=== PATIENT | male | born 1940 | race Caucasian/White ===

== ENCOUNTER → 2018-04-26 | Outpatient (CLI) | payer MEDICARE, BC ==
[~2018-04-26] MED LIST: ASPI1TAB57 PO; COMMODE 3-IN-11 MIS; CYCL10TA PO; HYDR-3366 PO; MIRA3350 PO; POTA-163 PO; PYRI100T PO; TEMA15CA PO; TRAM50TA PO; TRIBTAB PO; VITA500S3 SL; WALKER WHEELS/F1 MIS
[2018-04-26 12:54] LABS: AUTOMATED NEUTROPHIL # 5.2 TH/MM3 (1.8-7.7); BASOPHIL % 0.7 % (0.0-2.0); EOSINOPHIL # 0.2 TH/MM3 (0-0.4); EOSINOPHIL % 2.6 % (0.0-4.0); HEMOGLOBIN 12.8 GM/DL (13.0-17.0); LYMPH % 14.9 % (9.0-44.0); MEAN CELL VOLUME 90.5 FL (80.0-100.0); MEAN CORPUSCULAR HEMOGLOBIN 31.3 PG (27.0-34.0); MEAN CORPUSCULAR HGB CONC 34.6 % (32.0-36.0); MEAN PLATELET VOLUME 7.5 FL (7.0-11.0); MONOCYTE # 0.6 TH/MM3 (0-0.9); NEUT % 73.8 % (16.0-70.0); PLATELET COUNT 297 TH/MM3 (150-450); RED BLOOD COUNT 4.09 MIL/MM3 (4.50-5.90); RED CELL DISTRIBUTION WIDTH 14.9 % (11.6-17.2)
--- NOTE | 2018-04-26 12:56 | RADRPT ---
EXAM DATE: 04/26/2018 12:52 PM EDT AGE/SEX: 77 years / Male INDICATIONS: Pre-Op for Lumbar surgery on 05/01/2018. CLINICAL DATA: This is the patient's initial encounter. Patient reports that signs and symptoms have been present for 1 day and indicates a pain score of 3/10. MEDICAL/SURGICAL HISTORY: None. None. COMPARISON: No prior exams available for comparison. FINDINGS: PA and lateral views of the chest demonstrate the lungs to be symmetrically aerated without evidence of mass, infiltrate or effusion. The cardiomediastinal contours are unremarkable. Osseous structures are intact. Spurs are seen in the thoracic spine. CONCLUSION: No acute cardiopulmonary process. Electronically signed by: Micheal Buckley MD 04/26/2018 12:55 PM EDT
[2018-04-26 13:04] LABS: PROTHROMBIN TIME - PATIENT 10.3 SEC (9.8-11.6)
[2018-04-26 13:15] LABS: BACTERIA, URINE MOD /hpf; BILIRUBIN, URINE NEG (NEG); BLOOD, URINE MOD (NEG); GLUCOSE,URINE NEG (NEG); KETONE, URINE NEG (NEG); MUCUS URINE FEW /lpf (OCC); NITRITE,URINE NEG (NEG); SQUAMOUS EPITHELIAL CELL URINE 1 /hpf (0-5); URINE COLOR YELLOW (YELLW/STRAW); URINE LEUKOCYTE ESTERASE LARGE (NEG)
[2018-04-26 13:19] LABS: ALBUMIN 3.5 GM/DL (3.4-5.0); BICARBONATE 30.4 MEQ/L (21.0-32.0); BLOOD UREA NITROGEN 33 MG/DL (7-18); CHLORIDE 100 MEQ/L (98-107); CREATININE 1.36 MG/DL (0.60-1.30); GLOMERULAR FILTRATION RATE 51 ML/MIN (>89); GLUCOSE,FASTING 99 MG/DL (74-99); SODIUM (NA) 141 MEQ/L (136-145)
[2018-04-26 13:21] LABS: AST (GOT) 19 U/L (15-37)
[2018-04-26 13:24] LABS: ALKALINE PHOSPHATASE 108 U/L (45-117); ALT (GPT) 27 U/L (12-78); TOTAL BILIRUBIN ADULT 0.4 MG/DL (0.2-1.0); TOTAL PROTEIN 7.4 GM/DL (6.4-8.2)
--- NOTE | 2018-04-27 15:16 | EKG ---
Date Performed: 04/26/2018 Time Performed: 12:06:38 PTAGE: 77 years EKG: Sinus rhythm NORMAL ECG NO PREVIOUS TRACING DOCTOR: Sarah Feng Interpretating Date/Time 04/27/2018 15:15:40
== END ==
LOC: CPRE 11:25
PROVIDERS: ATTEND Neurological Surgery
DX: Z01.810 Encounter for preprocedural cardiovascular examination (principal); Z01.811 Encounter for preprocedural respiratory examination; Z01.812 Encounter for preprocedural laboratory examination; Z01.818 Encounter for other preprocedural examination; Z79.01 Long term (current) use of anticoagulants; M48.062 Spinal stenosis, lumbar region with neurogenic claudication; M51.36 Other intervertebral disc degeneration, lumbar region; M48.8X6 Other specified spondylopathies, lumbar region; M43.10 Spondylolisthesis, site unspecified; R82.99 Other abnormal findings in urine
CPT/HCPCS: 71046; 80053; 81001; 85025; 85610; 85730; 87086; 87640; 87641; 93005

== ENCOUNTER 2018-05-01 06:05 | Inpatient (IN) | payer MEDICARE, BC ==
[~2018-05-01] VITALS: Ht 177.8 cm; Wt 102.2 kg
[~2018-05-01 06:05] MED LIST changes: -COMMODE 3-IN-11 MIS; -CYCL10TA PO; -HYDR-3366 PO; -MIRA3350 PO; -TRAM50TA PO; -WALKER WHEELS/F1 MIS
[2018-05-01] MEDS ORDERED: POVIDONE IODINE 5% (ANTISEPSIS KIT) 4 APPLICATIONS EACH NARE PRN (06:45)
[2018-05-01] MEDS ORDERED: SODIUM CHLOR 0.9% 1000 ML INJ 1,000 ML IV SCH (06:45)
[2018-05-01] MEDS ORDERED: METOPROLOL TARTRATE 25 MG TAB PO PRN (06:45)
[2018-05-01] MEDS ORDERED: LACTATED RINGER'S 1000 ML IV PRN (06:45)
[2018-05-01] MEDS ORDERED: VANCOMYCIN 1 GM/200 ML PREMIX ON-CALL IV SCH (06:45)
[2018-05-01] MEDS ORDERED: CHLORHEXIDINE GLUCONATE 2 % 1 PACK (2 CLOTHS) TOPICAL PRN (06:45)
[2018-05-01] MEDS ORDERED: SODIUM CHLORID 0.9% 500 ML IV PRN (06:45)
[2018-05-01] MEDS ORDERED: ceFAZolin 2 GM/DEX PREMIX 50 ML IV SCH (07:00)
[2018-05-01] MEDS ORDERED: BUPIVACAINE/EPINEPHRINE 0.5% PF 30 ML VIAL ONE (07:06)
[2018-05-01] MEDS ORDERED: THROMBIN (TOPICAL) 5,000 UNIT VIAL ONE (07:09)
[2018-05-01] MEDS ORDERED: GELATIN 12 MM/7 MM FOAM ONE (07:09)
[2018-05-01] MEDS ORDERED: VANCOMYCIN HCL 1000 MG VIAL ONE ×2 (07:09→11:52)
[2018-05-01] MEDS ORDERED: GELFOAM SIZE 100 ONE (07:09)
[2018-05-01] MEDS ORDERED: ACETAMINOPHEN 1000 MG/100 ML 100 ML IV ONE (07:23)
[2018-05-01] MEDS ORDERED: MIRA3350 PO (07:47)
[2018-05-01] MEDS ORDERED: TRAM50TA PO (07:47)
[2018-05-01] MEDS ORDERED: LEVOFLOXACIN 750 MG/DEXTROSE 150 ML IV ONE (10:15)
[2018-05-01] MEDS ORDERED: GLYCOPYRROLATE 1 MG/5 ML SYRINGE IV PUSH ONE (12:00)
[2018-05-01] MEDS ORDERED: PROPOFOL 200 MG/20 ML AMP IV ONE (12:00)
[2018-05-01] MEDS ORDERED: NEOSTIGMINE 5 MG/5 ML SYRINGE IV PUSH ONE (12:00)
[2018-05-01] MEDS ORDERED: PHENYLEPH/NS 1000 MCG/10 ML SYR IV ONE (12:00)
[2018-05-01] MEDS ORDERED: DEXAMETHASONE SOD PHOS 4 MG/ML VIAL IV ONE (12:00)
[2018-05-01] MEDS ORDERED: LIDOCAINE HCL 1% PF 5 ML SYRINGE OTHER ONE (12:00)
[2018-05-01] MEDS ORDERED: ROCURONIUM INJ 50 MG/5 ML SYRINGE IV PUSH ONE (12:00)
[2018-05-01] MEDS ORDERED: ONDANSETRON HCL 4 MG/2 ML VIAL IV ONE (12:00)
[2018-05-01] MEDS ORDERED: ePHEDrine/NS 25 MG/5 ML SYRINGE IV ONE (12:00)
[2018-05-01] MEDS ORDERED: DO NOT ADM ANY ANTICOAGULANT DRUGS PRN (13:00)
[2018-05-01] MEDS ORDERED: MORPHINE SULFATE 4 MG/ML INJ ONE (13:14)
[2018-05-01] MEDS ORDERED: *morphine SULFATE 4 MG/ML PERIprocedure ONLY ONE ×3 (13:18→13:56)
--- NOTE | 2018-05-01 13:27 | PD.OP ---
Bhupinder Esqueda, Operative Report Date of Surgery: May 01, 2018 Preoperative Diagnosis: Intractable low back pain with neurogenic claudication; L4-5 facet and ligamentum flavum hypertrophy with severe spinal stenosis and associated degenerative disc disease with grade 1 spondylolisthesis Postoperative Diagnosis: Same Procedure: Lumbar L4-5 transforaminal interbody fusion; L4-5 decompressive laminectomy; L4- 5 pedicle screw fixation; L4-5 interbody cage placement; microsurgical technique Anesthesia: General endotracheal by Mariel leary Surgeon: Brett Love MD Professor Of Biochemistry(s): Leann Wang Operation and Findings: Following initiation of general endotracheal anesthesia, the patient had a Tinajero catheter placed along with sequential compression devices. A gram of vancomycin was administered intravenously and he was turned in a prone position on a Dwaine frame, on a Volodymyr table, and all pressure points adequately padded. The lumbosacral region was then prepped with Chloraprep and sterilely draped with Ioban along the usual sterile draping. A midline skin incision was then made extending from the L4-L5 level after infiltrating the skin with 0.5% Marcaine with epinephrine solution extending down through the fascia. The muscle fibers were split using avascular fatty plane and detached from the underlying facets, transverse process and lateral portion of lamina on the left side and a self-retaining retractor used for exposure. Intraoperative fluoroscopy was also used for level of confirmation along with microscope magnification for further dissection. There was significant facet and ligamentum flavum hypertrophy noted at the L4-5 levels. Left L4-5 facet was resected with a drill bit along with the lamina and there was severe foraminal and lateral recess stenosis from hypertrophied ligamentum flavum and facet which were decompressed bilaterally through the unilateral approach with gentle thecal sac retraction for circumferential spinal canal decompression. There was significant disc height collapse along with disc protrusion also leading to the foraminal stenosis. Epidural hemostasis was achieved with bipolar cautery and Gelfoam with thrombin. Subsequently entered into the disc space at the L4-5 level with a #15 blade and mireya were used for discectomy. I then placed PEEK cage packed with local autograft bone and more local autograft bone was packed adjacent to the cage in interspace for added interbody fusion. With placement of the cage, I was able to distract the interspace and opened up the foramen further bilaterally. Subsequently in order to facilitate the fusion and provide stabilization, pedicle screw fixation was undertaken using Gibbon spine screws on entry point at the left L4-5 levels at the junction of the transverse process and facet. Subsequently using AP and lateral fluoroscopy tap and screw placement. The screws were then connected with a jose and locked in place with caps. The construct appeared very secure at this point. The area was then copiously irrigated with Vancomycin solution and powder. The retractors were removed and the bipolar cautery used for hemostasis. The muscle fascia was then approximated using 2-0 Vicryl interrupted stitches and then 3-0 Vicryl subcuticular stitches also placed in interrupted fashion. The final skin closure was completed with Mastisol and Steri-Strips. A sterile dressing was then applied. The patient then turned in supine position, extubated and taken to recovery room. There were no intraoperative complications. All sponge and needle counts were correct at the end of procedure. Estimated blood loss about 50 ml. Brett Love MD May 01, 2018 13:26
[2018-05-01] MEDS ORDERED: BISACODYL 10 MG SUPP RECTAL PRN (13:30)
[2018-05-01] MEDS ORDERED: MENTHOL LOZENGE BUCCAL PRN (13:30)
[2018-05-01] MEDS ORDERED: PROMETHAZINE INJ 25 MG/ML VIAL IM PRN (13:30)
[2018-05-01] MEDS ORDERED: ALUMINUM/MAGNESIUM/SIMETH 30 ML CUP PO PRN (13:30)
[2018-05-01] MEDS ORDERED: RESP: ALBUTEROL 2.5 MG/3 ML NEB (PRN) NEB (13:30)
[2018-05-01] MEDS ORDERED: MORPHINE SULFATE 4 MG/ML INJ IV PUSH PRN (13:30)
[2018-05-01] MEDS ORDERED: ONDANSETRON HCL 4 MG/2 ML VIAL IV PUSH PRN (13:30)
[2018-05-01] MEDS ORDERED: LACTULOSE SYRUP 20 GM/30 ML CUP PO PRN (13:30)
[2018-05-01] MEDS ORDERED: MAGNESIUM SULFATE INJ 2 GM in SODIUM CHLORIDE 0.9% INJ 100 ML IV PRN (13:30)
[2018-05-01] MEDS ORDERED: SODIUM CHLORIDE 0.9% FLUSH 10 ML FLUSH IV FLUSH PRN (13:30)
[2018-05-01] MEDS ORDERED: POTASSIUM CHLOR 20 MEQ PREMIX 100 ML IV PRN (13:30)
[2018-05-01] MEDS ORDERED: cloNIDine HCL 0.1 MG TAB PO PRN (13:30)
[2018-05-01] MEDS ORDERED: TEMAZEPAM 15 MG CAP PO PRN (13:30)
[2018-05-01] MEDS ORDERED: CALCIUM GLUCONATE INJ 1 GM in SODIUM CHLORIDE 0.9% INJ 100 ML IV PRN (13:30)
[2018-05-01] MEDS ORDERED: ACETAMINOPHEN 325 MG TAB PO PRN (13:30)
[2018-05-01] MEDS ORDERED: ACETAMINOPHEN/HYDROcodone 325 MG/10 MG TAB PO PRN (13:30)
[2018-05-01 13:38] LABS: AMORPHOUS SEDIMENT, URINE OCC; BACTERIA, URINE OCC /hpf; BILIRUBIN, URINE NEG (NEG); BLOOD, URINE SMALL (NEG); GLUCOSE,URINE NEG (NEG); KETONE, URINE NEG (NEG); MUCUS URINE FEW /lpf (OCC); NITRITE,URINE NEG (NEG); URINE COLOR YELLOW (YELLW/STRAW); URINE LEUKOCYTE ESTERASE LARGE (NEG); WHITE BLOOD CELL CLUMPS RARE
[2018-05-01 13:47] LABS: AUTOMATED NEUTROPHIL # 7.1 TH/MM3 (1.8-7.7); BASOPHIL % 0.5 % (0.0-2.0); EOSINOPHIL % 0.4 % (0.0-4.0); HEMOGLOBIN 11.6 GM/DL (13.0-17.0); LYMPH % 6.9 % (9.0-44.0); LYMPHOCYTE # 0.5 TH/MM3 (1.0-4.8); MEAN CELL VOLUME 90.2 FL (80.0-100.0); MEAN CORPUSCULAR HEMOGLOBIN 30.8 PG (27.0-34.0); MEAN CORPUSCULAR HGB CONC 34.2 % (32.0-36.0); MEAN PLATELET VOLUME 6.8 FL (7.0-11.0); MONO % 2.6 % (0.0-8.0); MONOCYTE # 0.2 TH/MM3 (0-0.9); NEUT % 89.6 % (16.0-70.0); PLATELET COUNT 276 TH/MM3 (150-450); RED BLOOD COUNT 3.77 MIL/MM3 (4.50-5.90); RED CELL DISTRIBUTION WIDTH 14.7 % (11.6-17.2); WHITE BLOOD COUNT 7.9 TH/MM3 (4.0-11.0)
[2018-05-01 14:01] LABS: CALCIUM 8.2 MG/DL (8.5-10.1); CREATININE 1.46 MG/DL (0.60-1.30); MAGNESIUM 2.1 MG/DL (1.5-2.5)
[2018-05-01] MEDS: NS + KCL 20 MEQ INJ 1,000 ML IV SCH (14:20)
[2018-05-01] MEDS ORDERED: HYDROmorphone HCL PF 2 MG/ML VIAL ONE (14:31)
[2018-05-01] MEDS ORDERED: POTASSIUM CHLORIDE 10 MEQ CONTROLLED RELEASE TAB PO ONE (15:00)
[2018-05-01] MEDS: CYCLOBENZAPRINE HCL 10 MG TAB PO SCH ×2 (15:00→23:18)
[2018-05-01] MEDS ORDERED: ONDANSETRON ODT 4 MG TAB PO PRN (15:15)
[2018-05-01] MEDS ORDERED: PILL SPLITTER OTHER PRN (15:15)
[2018-05-01] MEDS ORDERED: METOCLOPRAMIDE HCL 10 MG/2 ML VIAL IV PUSH PRN (16:45)
[2018-05-01 20:00] VITALS: BP 140/67; PULSE 70; RESP 18; TEMP 97.4; O2SAT 100
[2018-05-01] MEDS: ACETAMINOPHEN/HYDROcodone 325 MG/10 MG TAB PO PRN (23:13)
[2018-05-01] MEDS: POTASSIUM CHLORIDE 20 MEQ CONTROLLED RELEASE TAB PO SCH (23:15)
[2018-05-01] MEDS: SODIUM CHLORIDE 0.9% FLUSH 10 ML FLUSH IV FLUSH SCH (23:17)
[2018-05-01] MEDS: DOCUSATE SODIUM 50 MG/SENNA 8.6 MG TAB PO SCH (23:17)
[2018-05-02] VITALS: BP 157/83; PULSE 78; RESP 18; TEMP 98; O2SAT 99
[2018-05-02 04:00] VITALS: BP 156/72; PULSE 70; RESP 18; TEMP 97.8; O2SAT 98
[2018-05-02] MEDS: CYCLOBENZAPRINE HCL 10 MG TAB PO SCH ×3 (05:33→22:13)
[2018-05-02] MEDS: NS + KCL 20 MEQ INJ 1,000 ML IV SCH ×2 (05:33→16:35)
[2018-05-02 05:52] LABS: BICARBONATE 27.5 MEQ/L (21.0-32.0); CALCIUM 8.3 MG/DL (8.5-10.1); CREATININE 1.04 MG/DL (0.60-1.30)
[2018-05-02 08:08] VITALS: BP 165/79; PULSE 71; RESP 17; TEMP 98.2; O2SAT 97
[2018-05-02] MEDS: PANTOPRAZOLE SOD 40 MG DELAYED RELEASE TAB PO SCH (08:27)
[2018-05-02] MEDS: DOCUSATE SODIUM 50 MG/SENNA 8.6 MG TAB PO SCH ×2 (08:27→21:22)
[2018-05-02] MEDS: LOSARTAN 50 MG TAB PO SCH (08:27)
[2018-05-02] MEDS: POTASSIUM CHLORIDE 20 MEQ CONTROLLED RELEASE TAB PO SCH ×2 (08:28→21:23)
[2018-05-02] MEDS: LEVOFLOXACIN 500 MG TAB PO SCH (08:28)
[2018-05-02] MEDS: HYDROCHLOROTHIAZIDE 12.5 MG CAP PO SCH (08:28)
[2018-05-02] MEDS: PYRIDOXINE HCL 50 MG TAB PO SCH (08:29)
[2018-05-02] MEDS: CYANOCOBALAMIN 1,000 MCG TAB PO SCH (08:29)
[2018-05-02] MEDS: SODIUM CHLORIDE 0.9% FLUSH 10 ML FLUSH IV FLUSH SCH ×2 (08:30→21:23)
[2018-05-02] MEDS: POLYETHYLENE GLYCOL 17 GM PKG PO SCH (08:30)
[2018-05-02] MEDS ORDERED: NON-FORMULARY DRUG (Olmesartan-Amlodipine-Hydrochlorothiazide (Tribenzor) 1 TAB) PO SCH (09:00)
--- NOTE | 2018-05-02 10:11 | HHI.NSPN ---
(Dimitrios Stacy) History Chief Complaint: Incisional pain controlled with medication. (Dimitrios Stacy) Interval History 05/02/18: Pt awake and alert. Complains of incisional pain controlled with pain medication. He denies any radiculopathy in LEs. He has mild paresthesias on the bottom of the right foot. He is pleased so far with results. (Dimitrios Stacy) Review of Systems General: Negative for: fever, chills, insomnia Respiratory: Negative for: shortness of breath, cough, sputum Cardiovascular: Negative for: chest pain Gastrointestinal: Negative for: nausea, vomitting, diarrhea, constipation ( Dimitrios Stacy) Exam Results Vital Signs Date Time Temp Pulse Resp B/P (MAP) Pulse Ox O2 Delivery O2 Flow Rate FiO2 05/02/18 08:08 98.2 71 17 165/79 (107) 97 05/01/18 14:45 Nasal Cannula 2 Intake and Output 05/02/18 05/02/18 05/03/18 08:00 16:00 00:00 Intake Total 480 ml Output Total 1800 ml Balance -1320 ml (Dimitrios Satcy) Physical Examination General: Pt awake and alert resting comfortably in bed. Eyes: Pupils equal and sclera anicteric. Resp: CTA bilaterally Heart: NSR no murmurs Abd: Soft positive bs Skin: Pt log rolled incision clean and dry, without signs of infection. Muscle: Moves LEs with good strength. Neuro: Pt awake and alert. Follows commands well. Speech clear and appropriate. Sensation intact in LEs. (Dimitrios Stacy) Lab, Micro, Other Results Laboratory Tests Test 05/01/18 13:36 05/02/18 04:59 White Blood Count 7.9 TH/MM3 Red Blood Count 3.77 MIL/MM3 Hemoglobin 11.6 GM/DL Hematocrit 34.0 % Mean Corpuscular Volume 90.2 FL Mean Corpuscular Hemoglobin 30.8 PG Mean Corpuscular Hemoglobin Concent 34.2 % Red Cell Distribution Width 14.7 % Platelet Count 276 TH/MM3 Mean Platelet Volume 6.8 FL Neutrophils (%) (Auto) 89.6 % Lymphocytes (%) (Auto) 6.9 % Monocytes (%) (Auto) 2.6 % Eosinophils (%) (Auto) 0.4 % Basophils (%) (Auto) 0.5 % Neutrophils # (Auto) 7.1 TH/MM3 Lymphocytes # (Auto) 0.5 TH/MM3 Monocytes # (Auto) 0.2 TH/MM3 Eosinophils # (Auto) 0.0 TH/MM3 Basophils # (Auto) 0.0 TH/MM3 CBC Comment DIFF FINAL Differential Comment Blood Urea Nitrogen 24 MG/DL 18 MG/DL Creatinine 1.46 MG/DL 1.04 MG/DL Random Glucose 130 MG/DL 107 MG/DL Calcium Level 8.2 MG/DL 8.3 MG/DL Magnesium Level 2.1 MG/DL Sodium Level 140 MEQ/L 140 MEQ/L Potassium Level 3.2 MEQ/L 4.0 MEQ/L Chloride Level 103 MEQ/L 105 MEQ/L Carbon Dioxide Level 26.0 MEQ/L 27.5 MEQ/L Anion Gap 11 MEQ/L 8 MEQ/L Estimat Glomerular Filtration Rate 47 ML/MIN 70 ML/MIN (Dimitrios Stacy) Medical Decision Making Impression and Plan A: 77 y/o M s/p L4/L5 TLIF with cage and pedicle screw fixation. P: Continue with pain control PT oob with brace on. D/C Tinajero. (Dimitrios Stacy) Attending Statement The exam, history, and the medical decision-making described in the above note were completed with the assistance of the mid-level provider. I reviewed and agree with the findings presented. I attest that I had a [id number] encounter with the patient on the same day, and personally performed and documented my assessment and findings in the medical record. (Brett oLve MD) Dimitrios Stacy May 02, 2018 10:11 Brett Love MD May 03, 2018 08:35
[2018-05-02] MEDS ORDERED: WALKER WHEELS/F1 MIS (10:22)
[2018-05-02] MEDS: ACETAMINOPHEN/HYDROcodone 325 MG/10 MG TAB PO PRN ×2 (11:30→18:49)
[2018-05-02 11:55] VITALS: BP 149/72; PULSE 93; RESP 18; TEMP 98.4; O2SAT 94
[2018-05-02] MEDS ORDERED: COMMODE 3-IN-11 MIS (12:18)
[2018-05-02] MEDS: MAGNESIUM HYDROXIDE SUSP 30 ML CUP PO PRN (16:33)
[2018-05-02 16:37] VITALS: BP 155/65; PULSE 78; RESP 18; TEMP 98.8; O2SAT 96
[2018-05-02] MEDS: SENNOSIDES 8.6 MG TAB PO PRN (16:39)
[2018-05-02] MEDS ORDERED: PADIMATE (CHAPSTICK) 4.5 GM TUBE TOPICAL PRN (19:30)
[2018-05-02 20:00] VITALS: BP 144/72; PULSE 105; RESP 18; TEMP 98.5; O2SAT 95
[2018-05-03] VITALS: BP 135/64; PULSE 90; RESP 16; TEMP 98.7; O2SAT 94
--- NOTE | 2018-05-03 00:12 | RADRPT ---
EXAM DATE: 05/01/2018 1:40 PM EDT AGE/SEX: 77 years / Male INDICATIONS: L4-5 fusion CLINICAL DATA: This is the patient's initial encounter. Patient reports that signs and symptoms have been present for 1 day and indicates a pain score of Nonresponsive. MEDICAL/SURGICAL HISTORY: Non-responsive. Non-responsive. COMPARISON: No prior exams available for comparison. FINDINGS: 3 intraoperative spot images of the lumbar spine. Posterior fusion hardware on the left at L4-5. CONCLUSION: Intraoperative spot images showing posterior hardware on the left at L4-5. Electronically signed by: Maco Erwin MD 05/03/2018 12:11 AM EDT
[2018-05-03 04:00] VITALS: BP 155/74; PULSE 91; RESP 18; TEMP 98.6; O2SAT 94
[2018-05-03] MEDS: CYCLOBENZAPRINE HCL 10 MG TAB PO SCH ×3 (06:01→23:30)
--- NOTE | 2018-05-03 08:23 | HHI.NSPN ---
(Dimitrios Stacy) History Chief Complaint: Incisional pain controlled with medication. (Dimitrios Stacy) Interval History 05/02/18: Pt awake and alert. Complains of incisional pain controlled with pain medication. He denies any radiculopathy in LEs. He has mild paresthesias on the bottom of the right foot. He is pleased so far with results. 05/03/18: Pt awake and alert. Complains of more incisional pain today and left hip pain. States he tried to get oob but had difficulty secondary to pain. He denies any radiculopathy into the LEs. His paresthesias has resolved on the bottom of the right foot. (Dimitrios Stacy) Review of Systems General: Negative for: fever, chills, insomnia Respiratory: Negative for: shortness of breath, cough, sputum Cardiovascular: Negative for: chest pain Gastrointestinal: Negative for: nausea, vomitting, diarrhea, constipation ( Dimitrios Stacy) Exam Results Vital Signs Date Time Temp Pulse Resp B/P (MAP) Pulse Ox O2 Delivery O2 Flow Rate FiO2 05/03/18 04:00 98.6 91 18 155/74 (101) 94 05/01/18 14:45 Nasal Cannula 2 Intake and Output 05/03/18 05/03/18 05/04/18 08:00 16:00 00:00 Intake Total 480 ml Balance 480 ml (Dimitrios Stacy) Physical Examination General: Pt awake and alert resting comfortably in bed. Eyes: Pupils equal and sclera anicteric. Resp: CTA bilaterally Heart: NSR no murmurs Abd: Soft positive bs Skin: SCDs in place. No cyanosis or erythema. Muscle: Moves LEs with good strength. Neuro: Pt awake and alert. Follows commands well. Speech clear and appropriate. Sensation intact in LEs. (Dimitrios Stacy) Lab, Micro, Other Results Last Impressions Lumbar Spine X-Ray 05/01/18 0000 Signed Impressions: CONCLUSION: Intraoperative spot images showing posterior hardware on the left at L4-5. (Dimitrios Stacy) Medical Decision Making Impression and Plan A: 77 y/o M s/p L4/L5 TLIF with cage and pedicle screw fixation. P: Continue with pain control PT oob with brace on. (Dimitrios Stacy) Attending Statement The exam, history, and the medical decision-making described in the above note were completed with the assistance of the mid-level provider. I reviewed and agree with the findings presented. I attest that I had a [id number] encounter with the patient on the same day, and personally performed and documented my assessment and findings in the medical record. (Brett Love MD) Dimitrios Stacy May 03, 2018 08:23 Brett Love MD May 03, 2018 17:15
[2018-05-03 08:31] VITALS: BP 165/80; PULSE 103; RESP 19; TEMP 98.7; O2SAT 93
[2018-05-03] MEDS: CYANOCOBALAMIN 1,000 MCG TAB PO SCH (09:00)
[2018-05-03] MEDS: SODIUM CHLORIDE 0.9% FLUSH 10 ML FLUSH IV FLUSH SCH ×2 (09:00→20:52)
[2018-05-03] MEDS: LOSARTAN 50 MG TAB PO SCH (09:49)
[2018-05-03] MEDS: HYDROCHLOROTHIAZIDE 12.5 MG CAP PO SCH (09:49)
[2018-05-03] MEDS: PANTOPRAZOLE SOD 40 MG DELAYED RELEASE TAB PO SCH (09:49)
[2018-05-03] MEDS: POTASSIUM CHLORIDE 20 MEQ CONTROLLED RELEASE TAB PO SCH ×2 (09:50→20:52)
[2018-05-03] MEDS: PYRIDOXINE HCL 50 MG TAB PO SCH (09:50)
[2018-05-03] MEDS: LEVOFLOXACIN 500 MG TAB PO SCH (09:50)
[2018-05-03] MEDS: DOCUSATE SODIUM 50 MG/SENNA 8.6 MG TAB PO SCH ×2 (09:50→20:52)
[2018-05-03] MEDS: POLYETHYLENE GLYCOL 17 GM PKG PO SCH (09:53)
[2018-05-03] MEDS: NS + KCL 20 MEQ INJ 1,000 ML IV SCH ×2 (09:56→17:00)
[2018-05-03] MEDS: ACETAMINOPHEN/HYDROcodone 325 MG/10 MG TAB PO PRN ×2 (11:53→17:17)
[2018-05-03 12:09] VITALS: BP 127/64; PULSE 104; RESP 18; TEMP 97.7; O2SAT 94
[2018-05-03 16:18] VITALS: BP 135/62; PULSE 82; RESP 17; TEMP 98.2; O2SAT 93
[2018-05-03 20:45] VITALS: BP 135/68; PULSE 78; RESP 17; TEMP 98.8; O2SAT 93
[2018-05-04] VITALS (8 sets, daily range): BP systolic 128–170; BP diastolic 66–84; PULSE 93–102; RESP 17–18; TEMP 98–100.5; O2SAT 90–95
[2018-05-04] MEDS: NS + KCL 20 MEQ INJ 1,000 ML IV SCH ×2 (05:30→17:03)
[2018-05-04] MEDS: SENNOSIDES 8.6 MG TAB PO PRN (06:00)
[2018-05-04] MEDS: MAGNESIUM HYDROXIDE SUSP 30 ML CUP PO PRN (06:00)
[2018-05-04] MEDS: CYCLOBENZAPRINE HCL 10 MG TAB PO SCH ×3 (06:00→22:26)
--- NOTE | 2018-05-04 09:36 | HHI.NSPN ---
History Chief Complaint: Incisional pain controlled with medication. Interval History 05/02/18: Pt awake and alert. Complains of incisional pain controlled with pain medication. He denies any radiculopathy in LEs. He has mild paresthesias on the bottom of the right foot. He is pleased so far with results. 05/03/18: Pt awake and alert. Complains of more incisional pain today and left hip pain. States he tried to get oob but had difficulty secondary to pain. He denies any radiculopathy into the LEs. His paresthesias has resolved on the bottom of the right foot. 05/04/18: Pt awake and alert. Pt continues to have significant pain in left hip and lateral thigh to the knee when trying to get oob. He has intermittent paresthesias and numbness in his feet with a history of Neuropathy. His ability to get in and out of bed and ambulate is limited. We talked about options from here and he is open to going to inpatient rehab. Review of Systems General: Negative for: fever, chills, insomnia Respiratory: Negative for: shortness of breath, cough, sputum Cardiovascular: Negative for: chest pain Gastrointestinal: Negative for: nausea, vomitting, diarrhea, constipation Exam Results Vital Signs Date Time Temp Pulse Resp B/P (MAP) Pulse Ox O2 Delivery O2 Flow Rate FiO2 05/04/18 08:00 98.0 102 18 155/72 (99) 91 05/01/18 14:45 Nasal Cannula 2 Intake and Output 05/04/18 05/04/18 05/05/18 08:00 16:00 00:00 Intake Total 480 ml Balance 480 ml Physical Examination General: Pt awake and alert resting comfortably in bed. Eyes: Pupils equal and sclera anicteric. Resp: CTA bilaterally Heart: NSR no murmurs Abd: Soft positive bs Skin: SCDs in place. No cyanosis or erythema. Muscle: Moves LEs with good strength. Neuro: Pt awake and alert. Follows commands well. Speech clear and appropriate. Sensation intact in LEs. Lab, Micro, Other Results Last Impressions Lumbar Spine X-Ray 05/01/18 0000 Signed Impressions: CONCLUSION: Intraoperative spot images showing posterior hardware on the left at L4-5. Medical Decision Making Impression and Plan A: 77 y/o M s/p L4/L5 TLIF with cage and pedicle screw fixation. P: Continue with pain control PT oob with brace on. OT consult Discussed plan with case management will try to get pt to inpatient rehab given his decreased mobility and difficulty transitioning with history of Neuropathy. Dimitrios Stacy May 04, 2018 9:36 am
[2018-05-04] MEDS: CYANOCOBALAMIN 1,000 MCG TAB PO SCH (09:44)
[2018-05-04] MEDS: POLYETHYLENE GLYCOL 17 GM PKG PO SCH (09:44)
[2018-05-04] MEDS: PANTOPRAZOLE SOD 40 MG DELAYED RELEASE TAB PO SCH (09:45)
[2018-05-04] MEDS: LOSARTAN 50 MG TAB PO SCH (09:45)
[2018-05-04] MEDS: DOCUSATE SODIUM 50 MG/SENNA 8.6 MG TAB PO SCH ×2 (09:45→20:38)
[2018-05-04] MEDS: HYDROCHLOROTHIAZIDE 12.5 MG CAP PO SCH (09:45)
[2018-05-04] MEDS: PYRIDOXINE HCL 50 MG TAB PO SCH (09:45)
[2018-05-04] MEDS: POTASSIUM CHLORIDE 20 MEQ CONTROLLED RELEASE TAB PO SCH ×2 (09:45→20:38)
[2018-05-04] MEDS: LEVOFLOXACIN 500 MG TAB PO SCH (09:46)
[2018-05-04] MEDS: SODIUM CHLORIDE 0.9% FLUSH 10 ML FLUSH IV FLUSH SCH ×2 (09:52→20:39)
[2018-05-04] MEDS ORDERED: HYDR-3366 PO (12:43)
[2018-05-04] MEDS ORDERED: CYCL10TA PO (12:43)
[2018-05-05 03:35] VITALS: BP 147/62; PULSE 102; RESP 18; TEMP 98.7; O2SAT 95
[2018-05-05] MEDS: CYCLOBENZAPRINE HCL 10 MG TAB PO SCH ×2 (06:15→13:17)
[2018-05-05] MEDS: NS + KCL 20 MEQ INJ 1,000 ML IV SCH (06:30)
[2018-05-05 08:00] VITALS: BP 179/84; PULSE 103; RESP 18; TEMP 98.1; O2SAT 91
[2018-05-05] MEDS: POLYETHYLENE GLYCOL 17 GM PKG PO SCH (08:19)
[2018-05-05] MEDS: PYRIDOXINE HCL 50 MG TAB PO SCH (08:19)
[2018-05-05] MEDS: CYANOCOBALAMIN 1,000 MCG TAB PO SCH (08:20)
[2018-05-05] MEDS: PANTOPRAZOLE SOD 40 MG DELAYED RELEASE TAB PO SCH (08:20)
[2018-05-05] MEDS: DOCUSATE SODIUM 50 MG/SENNA 8.6 MG TAB PO SCH (08:20)
[2018-05-05] MEDS: HYDROCHLOROTHIAZIDE 12.5 MG CAP PO SCH (08:20)
[2018-05-05] MEDS: POTASSIUM CHLORIDE 20 MEQ CONTROLLED RELEASE TAB PO SCH (08:20)
[2018-05-05] MEDS: LEVOFLOXACIN 500 MG TAB PO SCH (08:21)
[2018-05-05] MEDS: LOSARTAN 50 MG TAB PO SCH (08:21)
[2018-05-05] MEDS: SODIUM CHLORIDE 0.9% FLUSH 10 ML FLUSH IV FLUSH SCH (08:22)
[2018-05-05 12:00] VITALS: BP 159/71; PULSE 105; RESP 22; TEMP 97.9; O2SAT 92
== END 2018-05-05 14:29 | DRG 460 ==
LOC: HSDI 06:05 → EDUNIT# 08:30 → N06A 15:38
PROVIDERS: ADMIT Neurological Surgery; ATTEND Neurological Surgery
PROC: 0SG00AJ Fusion of Lumbar Vertebral Joint with Interbody Fusion Device, Posterior Approach, Anterior Column, Open Approach (ICD-10-PCS; principal; 2018-05-01 08:40)
DX: M48.062 Spinal stenosis, lumbar region with neurogenic claudication (principal); G62.9 Polyneuropathy, unspecified; I10 Essential (primary) hypertension; M51.36 Other intervertebral disc degeneration, lumbar region; M43.10 Spondylolisthesis, site unspecified; E78.5 Hyperlipidemia, unspecified; I73.9 Peripheral vascular disease, unspecified; R73.03 Prediabetes; K21.9 Gastro-esophageal reflux disease without esophagitis; N18.9 Chronic kidney disease, unspecified; E66.9 Obesity, unspecified; Z68.32 Body mass index [BMI] 32.0-32.9, adult
CPT/HCPCS: 72100; 76000; 80048; 81001; 83735; 85025; 86850; 86900; 86901; 87086; 94150; C1713; J0131; J0690; J1100; J1170; J1956; J2270; J2370; J2405; J2710; J3010; J3370; J3480; J7120; L0627